=== PATIENT | female | born 1995 ===

== ENCOUNTER 2021-06-22 10:19 | Outpatient (REF) | payer MEDICARE, SELFPAY ==
[2021-06-22 11:27] LABS: COVID-19 Test Negative (Negative); IDNOW Serial# 16C4AD1C
== END 2021-06-22 10:20 | disposition home or self-care (01) ==
LOC: HO.LAB 10:19
PROVIDERS: Visit Provider Internal Medicine
DX: Z20.822 Contact with and (suspected) exposure to COVID-19 (principal)
CPT/HCPCS: 36415; 87635; C9803